=== PATIENT | male | born 1975 | race Caucasian/White ===

== ENCOUNTER 2017-01-13 18:01 | Emergency (ER) | payer MEDICAID ==
[~2017-01-13] VITALS: Ht 172.7 cm; Wt 98.0 kg
[2017-01-13] MEDS ORDERED: SODIUM CHLORIDE 0.9% 1,000 ML IV ONE (18:57)
[2017-01-13 20:22] LABS: BASOPHILS % 0.4 % (0.0-2.0); EOSINOPHILS % 0.9 % (0.0-5.0); HEMATOCRIT. 26.6 % (42.0-52.0); HEMOGLOBIN. 8.7 g/dL (14.0-18.0); LYMPHOCYTES % 8.8 % (20.0-50.0); MEAN CORPUSCULAR VOLUME 85.1 fL (80.0-94.0); MEAN PLATELET VOLUME 8.3 fl (7.4-10.4); MONOCYTES % 9.8 % (2.0-8.0); NEUTROPHILS % 80.1 % (40.0-76.0); PLATELET 322 x1000/uL (130-400); RED BLOOD CELL COUNT 3.12 mill/uL (4.7-6.1); RED CELL DISTRIBUTION WIDTH 15.2 % (11.6-14.6)
[2017-01-13 20:26] LABS: CHLORIDE 108 mEq/L (98-107)
[2017-01-13 20:29] LABS: INR 1.1; PARTIAL THROMBOPLASTIN TIME 30.3 sec (24.0-34.0); PROTHROMBIN TIME 11.1 sec
[2017-01-13 20:30] LABS: CARBON DIOXIDE 17 mEq/L (21-32)
[2017-01-13 20:33] LABS: ETHANOL BLOOD < 10 mg/dL
[2017-01-13 20:38] LABS: TROPONIN I 0.04 ng/mL (0.00-0.04)
[2017-01-13] MEDS ORDERED: FUROSEMIDE 20MG/2ML VIAL IVP NR (23:08)
[2017-01-14 01:55] LABS: CLARITY URINE CLEAR (CLEAR); COLOR URINE YELLOW (YELLOW); GLUCOSE URINE TRACE (NEGATIVE); KETONES URINE NEGATIVE (NEGATIVE); LEUKOCYTE ESTERASE URINE NEGATIVE (NEGATIVE); NITRITE URINE NEGATIVE (NEGATIVE); OCCULT BLOOD URINE 1+ (NEGATIVE); PROTEIN URINE 3+ (NEGATIVE); SPECIFIC GRAVITY URINE 1.011 (1.005-1.030); UROBILINOGEN URINE 0.2 E.U./dL (0.2-1.0)
[2017-01-14 02:13] LABS: *AMPHETAMINES SCREEN URINE NEGATIVE (NEGATIVE); *BARBITURATES SCREEN URINE NEGATIVE (NEGATIVE); *BENZODIAZEPINES SCREEN URINE NEGATIVE (NEGATIVE); *COCAINE SCREEN URINE NEGATIVE (NEGATIVE); CANNABINOID URINE SCREEN NEGATIVE (NEGATIVE); METHADONE URINE SCREEN NEGATIVE (NEGATIVE); OPIATES URINE SCREEN NEGATIVE (NEGATIVE); PHENCYCLIDINE URINE SCREEN NEGATIVE (NEGATIVE)
[2017-01-14 05:35] VITALS: BP 158/100
== END 2017-01-14 07:04 | disposition left against medical advice (07) ==
LOC: ER 18:22 → EDBEDREQTM 01-14 06:20 → EDBEDREQ 01-14 06:20 → ER 01-14 07:04 → ENRESERV 01-14 14:31 → CANRESERV 01-14 14:31 → CANBEDREQ 01-14 20:07
DX: N17.9 Acute kidney failure, unspecified (principal); E87.70 Fluid overload, unspecified; I12.9 Hypertensive chronic kidney disease with stage 1 through stage 4 chronic kidney disease, or unspecified chronic kidney disease; E11.22 Type 2 diabetes mellitus with diabetic chronic kidney disease; N18.9 Chronic kidney disease, unspecified; E78.00 Pure hypercholesterolemia, unspecified; F17.200 Nicotine dependence, unspecified, uncomplicated; R06.00 Dyspnea, unspecified
CPT/HCPCS: 36415; 51702; 71010; 78582; 80053; 80305; 81001; 83880; 84484; 85025; 85610; 85730; 93005; 93970; 96374; 99285; A9540; A9558; G0482; J1940; L1830; Z7610; J7030; A4315